=== PATIENT | female | born 1985 | race Caucasian/White ===

== ENCOUNTER 2024-09-03 22:01 | Emergency (ER) | payer OTHER, SELFPAY ==
[2024-09-03 22:02] VITALS: BP 121/85; PULSE 107; RESP 20; TEMP 36.9; O2SAT 98; BMI 32.2
== END 2024-09-04 02:28 | disposition left against medical advice (07) ==
PROVIDERS: Emergency Provider Emergency Medicine
DX: R51.9 Headache, unspecified (principal)
CPT/HCPCS: 99281

== ENCOUNTER 2025-04-07 18:44 | Emergency (ER) | payer OTHER, SELFPAY ==
--- NOTE | ~2025-04-07 | CT_ITS ---
CLINICAL HISTORY: near syncope possible new onset seizure CT head without contrast Comparison: None provided Findings: No intra-axial mass, midline shift, hydrocephalus, or acute hemorrhage. No significant atrophy-like change or white matter disease. There is no sinus or mastoid fluid. The orbits are unremarkable. No skull fracture. IMPRESSION: 1. No acute intracranial findings. This document has been electronically signed by: Diana Hernadez MD on 04/07/2025 22:12:32
[2025-04-07 18:53] VITALS: BP 110/73; BP 118/60; PULSE 102; PULSE 82; RESP 16; TEMP 36.9; O2SAT 96; O2SAT 98; BMI 28.3
--- NOTE | 2025-04-07 19:09 | ED_ITS ---
HPI - Syncope General Chief Complaint: Syncope Stated Complaint: ?seizure Time Seen by Provider: 04/07/25 19:09 History of Present Illness ED Provider: Stephen Gallo MD HPI narrative: 39-year-old female who reports to me intermittent spells of the past several weeks of either syncope or ending up on the floor or drowsiness. She is quite unclear and goes back and forth with me. 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 She did not seek care at that time. No head injury or other injury sustained. There is perhaps a family history of electrolyte related seizure disorder in the patient's mother at a advanced age. Unclear if there was other epilepsy. The patient explicitly and repeatedly denies drinking alcohol. Her alcohol level later resulted in the 300 range. Related Data Allergies Allergy/AdvReac Type Severity Reaction Status Date / Time No Known Allergies Allergy Verified 04/07/25 19:42 [facility] Social History Social History Advance Directives: No Advance Directives Information Provided: No Physical Exam 2 Vital Signs: Vital Signs: Last Vital Signs Temp 98.5 F 04/07/25 22:12 Pulse 99 04/07/25 22:12 Resp 18 04/07/25 22:12 BP 113/75 04/07/25 22:12 Pulse Ox 97 04/07/25 22:12 O2 Del Method Room Air 04/07/25 22:12 BMI result Body Mass Index 28.3 Const: Other: EXAM: Gen: Alert, awake, well appearing, well hydrated. GENERAL: Well appearing. No apparent distress. Alert. Alcohol on breath not grossly intoxicated or ataxic HEAD/NECK: Normal to inspection. Neck supple. No cervical lymphadenopathy. EYES: Normal to inspection. Sclera non-icteric. ENMT: External nose normal. RESPIRATORY: Respiratory effort normal. Lungs clear to auscultation bilaterally. CARDIOVASCULAR: Regular rate. Normal rhythm. No murmur. No rubs. GI: Soft, non-tender, non-distended. No rebound or guarding. No masses palpable. No hepatosplenomegaly. SKIN: No jaundice. NEUROLOGICAL: Alert. PSYCHIATRIC: Alert. Appearance appropriate for situation. Attitude cooperative. OTHER: Comprehensive Neuro exam: Face symmetric, tongue midline, strong symmetric eye closure, pupils symmetric and reactive to light, intact sensation to the face throughout, intact strong face deviation and shoulder shrug. Sensation intact to light touch throughout * 5 out of 5 strength in bilateral upper extremities, 5 and 5 strength in lower extremities Medical Decision Making Medical Decision Making MDM Narrative: Medical Decision Makin-year-old female history of alcohol use disorder. Fainting episodes and/or seizure episodes. Patient does not have any tremor, tachycardia, vomiting agitation or other signs of acute alcohol withdrawal. Episode today sounds more as if she was intoxicated and either fell or lowered herself and began sleeping on the floor. This was not witnessed there was no incontinence or tongue biting she has no evidence of traumatic injuries. She has alcohol on breath and appears perhaps very mildly intoxicated but is not ataxic she has a reassuring neuro exam. Patient both alone and in the presence of her partner denies explicitly drinking alcohol despite the alcohol level here. I find it difficult to believe the patient has an extraordinarily rare auto brewery syndrome although I guess this would be possible. I recommended the patient follow up with PCP and/or GI for further testing and told her to avoid any alcohol products. There is no evidence of injury brain mass ICH on CT patient may need MRI but not emergently she will follow up with a neurologist who she has seen in the past. She declined detox or other addiction medicine follow up referral or consultation as she denied drinking any alcohol. I advised her strongly and explicitly in no uncertain terms that she is not to drive a car given that she has had a seizure in [facility] she said she will not drive a car this was in the presence of her spouse or male partner at the bedside. Preliminary Favored Differential Diagnosis: Acute alcohol intoxication, fall or traumatic injury, ICH or brain mass, less likely seizure from alcohol withdrawal given the alcohol level and lack of any other findings suggesting alcohol withdrawal syndrome among additional considered etiologies Testing Interpreted Independently: Not applicable Radiology or Lab testing Results Reviewed:Lab work with mild transaminitis no other actionable findings. CT head by Radiology read negative. ble Consults: Not Applicable Independent Historians/External Chart Reviews: Not Applicable Social Determinants of Health Impacting MDM/Planning: Not Applicable Lab Data 04/07/25 19:29 04/07/25 19:29 Labs: Lab Results 04/07/25 04/07/25 Range/Units 19:29 19:55 WBC 9.1 (4.8-10.8) X10*3/uL RBC 4.53 (4.20-5.50) X10*6/uL Hgb 13.8 (12.0-16.0) g/dl Hct 39.8 (37.0-47.0) % MCV 87.9 (80.0-98.0) fL MCH 30.5 (27.0-33.0) pg MCHC 34.7 (31.0-35.0) g/dl RDW 13.7 (11.0-16.0) % Plt Count 457 H (160-400) X10*3/uL MPV 9.7 (9.4-12.3) fL Immature Gran % (Auto) 0.3 (0.0-0.4) % Neut % (Auto) 55.0 (45-73) % Lymph % (Auto) 34.7 (20-40) % Treasure % (Auto) 8.6 (2-11) % Eos % (Auto) 0.8 (0-4) % Baso % (Auto) 0.6 (0-2) % Lymph # (Auto) 3.2 (1.2-4.9) X10*3/uL Treasure # (Auto) 0.8 (0.1-1.2) X10*3/uL Eos # (Auto) 0.1 (0.0-0.4) X10*3/uL Baso # (Auto) 0.1 (0.0-0.2) X10*3/uL Abs Immat Gran (auto) 0.03 (0.00-0.03) X10*3/uL Absolute Neuts (auto) 5.0 (2.0-8.3) x10*3/uL Absolute Nucleated RBC 0.000 (0.0-0.012) X10*3/uL Nucleated RBC % (auto) 0.0 (0.0-0.2) /100WBC Sodium 144 (135-145) mmol/L Potassium 3.8 (3.3-5.1) mmol/L Chloride 107 (96-108) mmol/L Carbon Dioxide 26 (22-29) mmol/L Anion Gap 15 (12-20) BUN 8 L (9-16) mg/dL Creatinine 0.65 (0.5-1.4) mg/dL Estim Creat Clear Calc 113.9 Estimated GFR > 60 Random Glucose 94 (60-115) mg/dL Calcium 9.1 (8.4-10.2) mg/dL Phosphorus 3.2 (2.7-4.5) mg/dL Magnesium 1.8 (1.6-2.6) mg/dL Total Bilirubin 0.2 (0.0-1.0) mg/dL AST 38 H (5-31) U/L ALT 52 H (0-31) U/L Alkaline Phosphatase 54 (39-117) U/L Troponin I High Sens < 2.7 (<3.5-17.0) ng/L B-Natriuretic Peptide 30 (<100) pg/mL Total Protein 7.9 (6.5-8.0) g/dL Albumin 4.6 (3.5-5.0) g/dL TSH 0.64 (0.32-4.0) uIU/mL Beta HCG, Quant < 2 mIU/mL Urine Opiates Screen Not Detected (Not Detect) Ur Buprenorphine Scrn Not Detected (Not Detect) ng/mL Ur Oxycodone Screen Not Detected (Not Detect) ng/mL Urine Methadone Screen Not Detected (Not Detect) ng/mL Urine Fentanyl Screen Not Detected (Not Detect) Ur Barbiturates Screen Not Detected (Not Detect) Ur Phencyclidine Scrn Not Detected (Not Detect) Ur Amphetamines Screen Not Detected (Not Detect) U Benzodiazepines Scrn Not Detected (Not Detect) Urine Cocaine Screen Not Detected (Not Detect) U Marijuana (THC) Screen Not Detected (Not Detect) Ethyl Alcohol 327 H* mg/dL Discharge Plan Discharge Clinical Impression: Syncope, Ethanol causing toxic effect Patient Disposition: Home, Self-Care Instructions: Syncope (ED) Additional Instructions: _ DISCHARGE DIAGNOSES: Syncope versus seizure Positive alcohol level, ethanol in the serum HISTORY OF PRESENTATION: ?Passing out versus seizure episode. Seizure a few weeks ago witnessed with tonic-clonic activity and postictal phase. EMERGENCY DEPARTMENT COURSE,TESTS, TREATMENTS: While in the ED today you had lab work which showed an elevated ethanol level. You had a CT of your head with no acute pathology. You had normal TSH thyroid tests. Negative test, very minimal elevation of your liver enzymes. Normal kidney function. Slightly elevated platelet level which is of unclear significance DISCHARGE MEDICATIONS: ?[We have made no changes to your regular medication regimen] FOLLOW-UP: ?Call your primary or general physician soon as possible to discuss your symptoms, your ED visit and to discuss follow up plans Call your primary doctor for follow up. You denied drinking or any other intake of ethanol and therefore not amenable to offering detox ?The patient had a first time or recurrent seizure. The patient was counseled extensively on the risks of operating a motor vehicle and/or machinery until cleared by a neurologist as an outpatient. Until that time we have recommended that the patient avoid these activities and also use general precautions in crossing the street, standing away from subway track, etc. The patient expressed understanding and verbally agreed to avoid these activities. INSTRUCTIONS ?& RETURN PRECAUTIONS: If any symptoms change first call your primary physician, if it is after-hours your primary doctors office should have a provider dynamics ax solution architect you can speak with. If the symptoms are severe or very concerning to you then call 911 or return to the ED. If you have another episode of passing out or seizure have to return back to the emergency department. Stephen Gallo MD Emergency Physician [facility] Interventions: ED Discharge Assessment Last Done: 04/07/25 22:12 Discharge Date/Time: 04/07/25 22:14 Print Language: Marshallese
--- NOTE | 2025-04-07 19:18 | ECG_ITS ---
Test Reason : syncope Blood Pressure : */* mmHG Vent. Rate : 93 BPM Atrial Rate : 93 BPM P-R Int : 148 ms QRS Dur : 72 ms QT Int : 356 ms P-R-T Axes : 33 -2 36 degrees QTcB Int : 442 ms Normal sinus rhythm Cannot rule out Anterior infarct , age undetermined Abnormal ECG No previous ECGs available Referred By: Stephen Gallo Electronically Signed By: Bong Oneil
[2025-04-07 19:33] LABS: MANUAL DIFF FLAG NO
[2025-04-07 19:34] LABS: Hematocrit 39.8 % (37.0-47.0); Hemoglobin 13.8 g/dl (12.0-16.0); Imm Gran Abs Auto 0.03 X10*3/uL (0.00-0.03); Imm Gran Pct Auto 0.3 % (0.0-0.4); Lymphocytes Absolute Auto 3.2 X10*3/uL (1.2-4.9); Mean Corpuscular HGB Conc 34.7 g/dl (31.0-35.0); Mean Corpuscular Hemoglobin 30.5 pg (27.0-33.0); Mean Corpuscular Volume 87.9 fL (80.0-98.0); NRBC Abs Auto 0.000 X10*3/uL (0.0-0.012); NRBC Pct Auto 0.0 /100WBC (0.0-0.2); Platelet Count 457 X10*3/uL (160-400); Red Blood Count 4.53 X10*6/uL (4.20-5.50); White Blood Count 9.1 X10*3/uL (4.8-10.8)
[2025-04-07 19:55] LABS: Alanine Aminotransferase 52 U/L (0-31); Albumin Level 4.6 g/dL (3.5-5.0); Alkaline Phosphatase 54 U/L (39-117); Anion Gap 15 (12-20); Aspartate Amino Transferase 38 U/L (5-31); Blood Urea Nitrogen 8 mg/dL (9-16); Calcium 9.1 mg/dL (8.4-10.2); Carbon Dioxide 26 mmol/L (22-29); Chloride 107 mmol/L (96-108); Creatinine Clr Calc Pharmacy 113.9; Estimated Glomerular Filt Rate > 60; Magnesium 1.8 mg/dL (1.6-2.6); Potassium 3.8 mmol/L (3.3-5.1); Sodium 144 mmol/L (135-145); Total Protein 7.9 g/dL (6.5-8.0)
[2025-04-07 19:56] LABS: B Type Natriuretic Peptide 30 pg/mL (<100)
[2025-04-07 19:57] LABS: Troponin-I High Sensitivity < 2.7 ng/L (<3.5-17.0)
[2025-04-07 20:10] LABS: Cannabinoid Screen Urine Not Detected (Not Detect)
[2025-04-07 20:11] LABS: Thyroid Stimulating Hormone 0.64 uIU/mL (0.32-4.0)
[2025-04-07 22:08] VITALS: BP 113/75; PULSE 99; RESP 18; TEMP 36.9; O2SAT 97
[2025-04-07 22:12] VITALS: BP 113/75; PULSE 99; RESP 18; TEMP 36.9; O2SAT 97
== END 2025-04-07 22:14 | disposition home or self-care (01) ==
PROVIDERS: Emergency Provider Emergency Medicine; PCP Internal Medicine Geriatric Medicine
DX: R55 Syncope and collapse (principal); F10.129 Alcohol abuse with intoxication, unspecified; Y90.8 Blood alcohol level of 240 mg/100 ml or more; Z51.81 Encounter for therapeutic drug level monitoring; Z79.899 Other long term (current) drug therapy
CPT/HCPCS: 36415; 70450; 80053; 80307; 83735; 83880; 84100; 84443; 84484; 84702; 85025; 93005; 99283; 99284

== ENCOUNTER → 2025-04-07 19:16 | Outpatient (BNV) | payer OTHER, SELFPAY | PROVIDERS: Emergency Provider Emergency Medicine; PCP Internal Medicine Geriatric Medicine; Visit Provider Student in an Organized Health Care Education/Training Program | DX: R55 Syncope and collapse (principal); R56.9 Unspecified convulsions | CPT/HCPCS: 70450 ==

== ENCOUNTER → 2025-04-07 19:18 | Outpatient (BNV) | payer OTHER, SELFPAY | PROVIDERS: Emergency Provider Emergency Medicine; PCP Internal Medicine Geriatric Medicine; Visit Provider Internal Medicine Cardiovascular Disease | DX: R94.31 Abnormal electrocardiogram [ECG] [EKG] (principal); R55 Syncope and collapse | CPT/HCPCS: 93010 ==

== ENCOUNTER → 2025-06-21 14:40 | Outpatient (REF) | payer OTHER, SELFPAY ==
--- OUTSIDE RECORDS SUMMARY | 2025-06-21 14:44 | XMS_ITS | Clinical Summary ---
Author Organization [facility] Address [address] [place] [id number] Phone Care Team Providers Care Hot Patcher Name Role Phone Enid Estes Hellen GEOLOGIST Primary Care Provider [phone] Allergies No known active allergies Medications No known medications Social History Tobacco Use Types Packs/Day Years Used Date Smoking Tobacco: Never Assessed Education Answer Date Recorded Are you interested in more education? Not on yaya e 02/13/2023 Are you concerned about learning? Not on file 02/13/2023 No 02/13/2023 No 02/13/2023 Digital Access Answer Date Recorded No 02/27/2023 No 02/27/2023 No 02/27/2023 Reliable internet access at home? Not on file 02/27/2023 Device with a working camera? Not on file Intimate Partner Violence Answer Date R ecorded Are you denied basic needs s uch as food, clothing, or medical care? No 09/04/2024 In the past 12 months have y ou been in a relationship with a person who hurts, threatens, or tries to control you? No 09/04/2024 Are you denied basic needs s uch as food, clothing, or medical care? No 09/04/2024 In the past 12 months have y ou been in a relationship with a person who hurts, threatens, or tries to control you? No 09/04/2024 Comments Unknown Sex and Gender Information Value Date Recorded Sex Assigned at Female 09/04/2024 1:49 AM EST Legal Sex Female 6:15 PM EST Gender Identity Female 09/04/2024 1:49 AM EST Sexual Orientation Straight 09/04/2024 1: 49 AM EST Last Filed Vital Signs Vital Sign Reading Time Taken Comments Blood Pressure 144/93 09/04/2024 1:16 AM EST Pulse 98 09/04/2024 1:16 AM EST Temperature 36.5 C (97.7 F) 09/04/2024 1:16 AM EST Respiratory Rate 18 09/04/2024 1:16 AM EST Oxygen Saturation 97% 09/04/2024 1:16 AM EST Inhaled Oxygen Concentration - - Weight 74.8 kg (165 lb) 09/04/2024 1:23 AM EST Height - - Body Mass Index - - Plan of Treatment Not on file Medical Devices Not on file Insurance NON NSPG PCP [facility] [address] [place] [address] NON NSPG PCP [facility] NON NSPG [facility]CP [facility] NON NSPG PCP [facility] NON NSPG PCP [facility] NON NSPG PCP [facility] Care Teams Hot Patcher Relationship Specialty Start Date End Date Enid Estes NP [address] [place] [id number] PCP - General Nurse Practitioner 09/04/24 Additional Source Comments The information contained in this document represents components of the legal health record. It is not the complete legal health record.[facility]
--- NOTE | 2025-06-21 14:45 | CA_ITS ---
Transthoracic Echocardiogram Patient (Last, First, Middle): aMite Calderon, Gender: F Date of : 1985 Age: 39 Procedure Date: 06/21/2025 Procedure Type: Transthoracic Echocardiogram Location: OP Height: 157.48 cm Weight: 75.3 kg BSA: 1.77 m2 Heart Rate: 88 bpm BP: 114 / 76 mmHg [employer]: SB Referring MD: Enid Estes NP Symptoms: R94.31 ABNORMAL EKG Study Quality: Adequate w contrast ECG Rhythm: Sinus Conclusions: - The left ventricular systolic function is normal. The calculated ejection fraction is 62% by biplane method. - No obvious valvular pathology seen on this study. Findings Procedure Information Contrast agent, definity, is being given per protocol without apparent complications. Left Ventricle Normal left ventricular cavity size. The left ventricular systolic function is normal. The calculated ejection fraction is 62% by biplane method. There is no evidence of regional wall motion abnormalities. Diastolic function is normal for age. There is mild septal asymmetric hypertrophy. Right Ventricle The right ventricle was not well visualized. Atria Both atria are normal in size. Aortic Valve The aortic valve was not well visualized. There is no aortic valve stenosis. There is no aortic valve regurgitation. Mitral Valve The mitral valve appears normal. There is trace mitral valve regurgitation. There is no mitral valve stenosis. Pulmonic Valve The pulmonic valve is likely normal. Tricuspid Valve There is trace tricuspid valve regurgitation. Tricuspid regurgitation envelope is inadequate for calculation of right ventricular systolic pressure. Great Vessels The asc aorta is normal in size. Venous The inferior vena cava was not well visualized. Pericardium/Pleural There is no evidence of pericardial effusion. Prior Study Comparison No prior study available for comparison. Recommendations, Care & Conclusions No obvious valvular pathology seen on this study. Measurements 2D Linear Measurements IVSd: 1.07 0.6-0.9/0.6-1.0 cm LVIDd: 4.18 3.9-5.3/4.2-5.9 cm LVIDd Index: 2.36 2.4-3.2/2.2-3.1 cm/m2 LVIDs: 2.92 2.0-3.6 cm LVPWd: 0.82 0.7-1.1 cm LA Diam: 3.40 2.7-3.8/3.0-4.0 cm LAIDs Index: 1.92 1.5-2.3 cm/m2 LV Mass: 156.06 67-162/88-224 g LV Mass Index: 88.17 43-95/49-115 g/m2 LVOT Diam: 2.00 3.0+(-)1.3 cm 2D Systolic Function EF 4C: 64.20 >55% EF 2C: 58.20 >55% EF BiP: 61.60 >55% Mitral Valve MV Pk E: 0.89 MV PK A: 0.58 MV Decel Time: 127.00 E/A: 1.50 E'Lateral: 13.90 E'Medial: 7.62 E/E' Med: 11.70 E/E' Lat: 6.40 PHT: 37.00 MVA PHT: 5.95 Decel Cole: 7.05 Aortic Valve AoV Pk Esau: 0.85 AoV Pk Grad: 3.00 TAY: 3.31 LVOT LVOT Pk Esau: 0.96 LVOT Mn Esau: 0.67 LVOT VTI: 0.17 LVOT Pk Grad: 4.00 LVOT Mn Grad: 2.00 LVOT Diam: 2.00 LVOT Area: 3.14 Diastolic Function MV Pk E: 0.89 MV Pk A: 0.58 E/A: 1.50 E'Medial: 7.62 E/E' Med: 11.70 E' Laterial: 13.90 E/E' Lat: 6.40 Tricuspid Valve RA Press: 3.00 Great Vessels Aorta Sinus of Valsalva: 3.10 2.0-3.5 cm Ao Asc: 3.30 2.1-3.4 cm Pulmonary Valve PV Pk Esau: 0.75 Peak PV Grad: 2.00 Updated in Other Vendor System with Status of Final Elier Javed MD electronically signed on 06/22/2025 12:56:05 PM with status of Final
== END ==
LOC: HO.CARD 14:40
PROVIDERS: PCP Nurse Practitioner; Visit Provider Nurse Practitioner
DX: R94.31 Abnormal electrocardiogram [ECG] [EKG] (principal)
CPT/HCPCS: 93306; Q9957

== ENCOUNTER → 2025-06-21 14:45 | Outpatient (BNV) | payer OTHER, SELFPAY | PROVIDERS: PCP Nurse Practitioner; Visit Provider Internal Medicine | DX: R94.31 Abnormal electrocardiogram [ECG] [EKG] (principal) | CPT/HCPCS: 93306 ==